=== PATIENT | male | born 1985 | race Caucasian/White ===

== ENCOUNTER 2025-04-20 20:36 | Inpatient (IN) | payer BC ==
[~2025-04-20] VITALS: Ht 177.8 cm; Wt 95.3 kg
[2025-04-20] MEDS ORDERED: IOHEXOL-350 100 ML VIAL IV ONE (20:49)
[2025-04-20] MEDS ORDERED: IV NS 0.9% 0 ML IV ONE (20:49)
[2025-04-20] MEDS ORDERED: CT SWABBABLE VALVE TRANS SET 1 EA INFUS.SET MC ONE (20:49)
[2025-04-20 20:59] LABS: PLATELET COUNT (AUTO) 292 K/uL (150-450); RED BLOOD CELL COUNT(AUTO) 5.59 MIL/uL (4.5-6.0); RED CELL DISTRIBUTION WIDTH 13.1 % (11.5-15.0); WHITE BLOOD COUNT (AUTO) 11.2 K/uL (4.3-11.0)
[2025-04-20 21:04] LABS: APPEARANCE,URINE CLEAR (CLEAR); BLOOD, URINE NEGATIVE Ery/uL (NEGATIVE); LEUKOCYTE ESTERASE ,URINE NEGATIVE (NEGATIVE); NITRITE, URINE NEGATIVE (NEGATIVE); UGLUCOSE NEGATIVE (NEGATIVE)
[2025-04-20 21:13] LABS: INR 0.99 (0.91-1.10)
[2025-04-20 21:24] LABS: CALCIUM, SERUM 9.2 mg/dL (8.5-10.1); CREATININE 1.6 mg/dL (0.6-1.3); SODIUM SERUM 140 mmol/L (136-145); UREA NITROGEN, BLOOD 21 mg/dL (7-18)
[2025-04-20 21:28] LABS: ASPARTATE AMINOTRANSFERASE 32 U/L (15-37); TOTAL PROTEIN, SERUM 8.2 g/dL (6.4-8.2)
[2025-04-20 21:36] LABS: AMPHETAMINE, URINE NEGATIVE (NEGATIVE); BARBITURATE, URINE NEGATIVE (NEGATIVE); BENZODIAZEPINE, URINE NEGATIVE (NEGATIVE); CANNABINOID, URINE NEGATIVE (NEGATIVE); OPIATE, URINE NEGATIVE (NEGATIVE)
[2025-04-20 21:37] LABS: COCCAINE, URINE POSITIVE (NEGATIVE)
[2025-04-20] MEDS: IV NS 0.9% 1,000 ML BAG IV ONE (21:50)
[2025-04-20 22:00] VITALS: O2SAT 97
[2025-04-20 22:46] VITALS: BP 152/101; TEMP 98.2; O2SAT 97
[2025-04-20] MEDS ORDERED: Z GUARD REMEDY 4 OZ OINT TP PRN (23:00)
[2025-04-20] MEDS ORDERED: HYDROCODONE/APAP 5/325MG TABLET PO PRN (23:00)
[2025-04-20] MEDS ORDERED: MAGNESIUM HYDROXIDE 30 ML UDC PO PRN (23:00)
[2025-04-20] MEDS ORDERED: MAG HYDROX/AL HYDROX/SIMETH 30 ML UDC PO PRN (23:00)
[2025-04-20] MEDS ORDERED: ACETAMINOPHEN 325 MG TABLET PO PRN (23:00)
[2025-04-20] MEDS ORDERED: ONDANSETRON HCL/PF 4 MG/2 ML VIAL IVP PRN (23:00)
[2025-04-20] MEDS: IV NS 0.9% 1,000 ML IV PRN (23:26)
[2025-04-20] MEDS ORDERED: hydrALAZINE HCL IV 20 MG VIAL IV PRN (23:30)
[2025-04-21] MEDS: TEMAZEPAM 15 MG CAPSULE PO PRN (00:12)
[2025-04-21] MEDS: PANTOPRAZOLE 40 MG TABLET.DR PO SCH (06:33)
[2025-04-21 06:47] LABS: PLATELET COUNT (AUTO) 265 K/uL (150-450); RED BLOOD CELL COUNT(AUTO) 5.23 MIL/uL (4.5-6.0); RED CELL DISTRIBUTION WIDTH 12.9 % (11.5-15.0); WHITE BLOOD COUNT (AUTO) 8.2 K/uL (4.3-11.0)
[2025-04-21 07:02] LABS: CALCIUM, SERUM 8.3 mg/dL (8.5-10.1); CREATININE 1.3 mg/dL (0.6-1.3); PHOSPHORUS 3.2 mg/dL (2.5-4.9); SODIUM SERUM 142.0 mmol/L (136-145); UREA NITROGEN, BLOOD 15.0 mg/dL (7-18)
[2025-04-21 07:50] LABS: LDL 138.0 mg/dL (0-99)
[2025-04-21] MEDS ORDERED: AMLO-213 PO (08:32)
[2025-04-21 08:42] VITALS: BP 131/83
[2025-04-21] MEDS: AMLODIPINE BESYLATE 5 MG TABLET PO SCH (08:42)
[2025-04-21] MEDS: POTASSIUM CHLORIDE 20 MEQ TAB.PRT.SR PO SCH (10:19)
== END 2025-04-21 17:05 | disposition home or self-care (01) | DRG 640 ==
LOC: ER 20:49 → MED 22:53
PROVIDERS: ADMIT Nurse Practitioner Acute Care; ATTEND Nurse Practitioner Acute Care
DX: E86.0 Dehydration (principal); G92.8 Other toxic encephalopathy; N17.0 Acute kidney failure with tubular necrosis; F12.921 Cannabis use, unspecified with intoxication delirium; I12.9 Hypertensive chronic kidney disease with stage 1 through stage 4 chronic kidney disease, or unspecified chronic kidney disease; N18.2 Chronic kidney disease, stage 2 (mild); Z79.899 Other long term (current) drug therapy; F17.210 Nicotine dependence, cigarettes, uncomplicated; D72.829 Elevated white blood cell count, unspecified
CPT/HCPCS: 36415; 70450-TC; 80048-TC; 80061-TC; 80076-TC; 82962-TC; 83735-TC; 84100-TC; 84484-TC; 85025-TC; 85730-TC; A4223; G0378; G0480; J7030; J7050; Q9967